=== PATIENT | female | born 1960 | race Caucasian/White ===

== ENCOUNTER → 2019-07-09 09:09 | Outpatient (BNVA) | payer MEDICAID, SELFPAY | PROVIDERS: Visit Provider Registered Nurse | DX: I10 Essential (primary) hypertension (principal); E55.9 Vitamin D deficiency, unspecified; J44.9 Chronic obstructive pulmonary disease, unspecified; Z72.0 Tobacco use; Z71.6 Tobacco abuse counseling; R09.02 Hypoxemia | CPT/HCPCS: 80053; 80061; 82306; 84443; 85025 ==

== ENCOUNTER → 2020-01-15 09:03 | Outpatient (BNVA) | payer MEDICAID, SELFPAY | PROVIDERS: Visit Provider Registered Nurse | DX: R35.0 Frequency of micturition (principal) | CPT/HCPCS: 81000 ==

== ENCOUNTER 2020-03-22 09:03 | Outpatient (CLI) | payer MEDICAID, SELFPAY ==
--- NOTE | 2020-03-22 09:11 | MM_ITS ---
WS: [id number] Bilateral screening digital mammogram, 03/22/2020 Clinical Data: SCREENING Comparison: 10/03/2017 Findings: The breast parenchymal pattern shows fibroglandular tissue. No spiculated masses or clustered calcifi cations are seen. There are no secondary signs of carcinoma. There is a calcification in the upper ou ter quadrant of the right breast which is probably a degenerating fibroadenoma. No change from the ea rlier exam is seen. MM/[place] [id number] Impression: 1. Negative bilateral mammogram unchanged. 2. Recommend annual screening mammograms. BIRADS: 2-Benign FOLLOW UP: 1 Year Follow-up The CAD inventory checker was used.
== END 2020-03-22 09:04 | disposition home or self-care (01) ==
LOC: RADSHAW 09:07
PROVIDERS: PCP Registered Nurse; Visit Provider Registered Nurse
DX: Z12.31 Encounter for screening mammogram for malignant neoplasm of breast (principal)
CPT/HCPCS: 77067

== ENCOUNTER → 2020-05-25 13:56 | Outpatient (BNVA) | payer MEDICAID, SELFPAY | PROVIDERS: PCP Registered Nurse; Visit Provider Registered Nurse | DX: N89.8 Other specified noninflammatory disorders of vagina (principal); B96.89 Other specified bacterial agents as the cause of diseases classified elsewhere | CPT/HCPCS: 80053; 81000; 82306; 82607; 85025 ==

== ENCOUNTER → 2021-03-07 15:00 | Outpatient (BNVA) | payer MEDICAID, SELFPAY | PROVIDERS: PCP Registered Nurse; Visit Provider Registered Nurse | DX: R10.11 Right upper quadrant pain (principal); E11.9 Type 2 diabetes mellitus without complications | CPT/HCPCS: 81000 ==

== ENCOUNTER → 2021-04-04 11:41 | Outpatient (BNVA) | payer MEDICAID, SELFPAY | PROVIDERS: PCP Registered Nurse; Visit Provider Registered Nurse | DX: E53.8 Deficiency of other specified B group vitamins (principal); B37.9 Candidiasis, unspecified | CPT/HCPCS: 87070 ==

== ENCOUNTER → 2021-12-22 14:59 | Outpatient (BNVA) | payer MEDICAID, SELFPAY | PROVIDERS: PCP Registered Nurse; Visit Provider Registered Nurse | DX: R05.9 Cough, unspecified (principal); J44.9 Chronic obstructive pulmonary disease, unspecified; Z20.822 Contact with and (suspected) exposure to COVID-19 | CPT/HCPCS: 87426 ==

== ENCOUNTER → 2022-02-09 11:25 | Outpatient (BNVA) | payer MEDICAID, SELFPAY | PROVIDERS: PCP Registered Nurse; Visit Provider Registered Nurse | DX: J44.1 Chronic obstructive pulmonary disease with (acute) exacerbation (principal) | CPT/HCPCS: 80053; 85025 ==

== ENCOUNTER → 2022-08-21 11:08 | Outpatient (BNVA) | payer MEDICAID, SELFPAY | PROVIDERS: PCP Registered Nurse; Visit Provider Registered Nurse | DX: R82.90 Unspecified abnormal findings in urine (principal) | CPT/HCPCS: 81000; 87077; 87086; 87184 ==

== ENCOUNTER → 2022-08-31 10:54 | Outpatient (BNVA) | payer MEDICAID, SELFPAY | PROVIDERS: PCP Registered Nurse; Visit Provider Registered Nurse | DX: J44.1 Chronic obstructive pulmonary disease with (acute) exacerbation (principal) | CPT/HCPCS: 83880; 85025; 86140 ==

== ENCOUNTER 2022-09-15 08:13 | Outpatient (CLI) | payer MEDICAID, SELFPAY ==
--- NOTE | 2022-09-15 08:30 | CT_ITS ---
WS: [id number] CT scan of the chest without IV contrast, additional two-dimensional coronal and sagittal reconstruct ion was performed. 09/15/2022 Clinical Data: J96.11 - Chronic respiratory failure with hypoxia Comparison: None. DLP: 182.[address] scans at [facility] use at least one of these dose optimization techniques: automated e xposure control; mA and/or kV adjustment per patient size (includes targeted exams where dose is matc hed to clinical indication); or iterative reconstruction. Findings: No nodules, masses or effusions are seen. The heart size is normal with no pericardial effusion. Ther e are coronary artery calcifications. The pulmonary arterial system and thoracic aorta demonstrate no abnormalities or dilatations. There is no axillary or significant mediastinal adenopathy. The upper abdomen demonstrates no abnormalities. The visualized liver, spleen, pancreas, and adrenal glands are unremarkable. There is a low-density area in the posterior aspect of the right kidney whic h is possibly a cyst. CT/CT chest wo con [id number] Impression: Negative for acute cardiopulmonary abnormalities.
== END 2022-09-15 08:14 | disposition home or self-care (01) ==
PROVIDERS: PCP Registered Nurse; Visit Provider Registered Nurse
DX: J44.9 Chronic obstructive pulmonary disease, unspecified (principal); J96.11 Chronic respiratory failure with hypoxia
CPT/HCPCS: 71250

== ENCOUNTER 2023-03-14 12:48 | Outpatient (CLI) | payer MEDICAID, SELFPAY ==
--- NOTE | 2023-03-14 13:00 | CT_ITS ---
WS: [id number] LDCT LUNG CANCER SCREENING TECHNIQUE: Noncontrast CT of the chest with coronal and sagittal reformatted images. CLINICAL INFORMATION: Z53.20 - Procedure and treatment not carried out because ... COMPARISON: CT chest 09/15/2022 DLP: 49.89 mGy.cm DIvol: Mean CTDIvol: 0.90 (mGy) All CT scans at [facility] use at least one of these dose optimization techniques: automat ed exposure control; mA and/or kV adjustment per patient size (includes targeted exams where dose is matched to clinical indication); or iterative reconstruction. FINDINGS: Moderate chronic emphysematous changes. Noncalcified nodule RIGHT upper lobe measuring 3 mm . Noncalcified 4 mm nodule RIGHT middle lobe anteriorly. Small RIGHT middle lobe nodule along the fissure. Noncalcified nodule in the RIGHT hilum measuring 5 mm. Nodular opacity RIGHT upper lobe near the lung apex measuring 6 mm. Noncalcified LEFT lower lobe nodule laterally measuring 5 mm. Noncalcified opacity LEFT lower lobe posteromedially measuring 6 mm. Normal caliber thoracic aorta. Aortic calcification. Coronary calcification. No mediastinal or hilar lymphadenopathy. No axillary lymphadenopathy. Normal GE junction. Mild thoracic curve. Mild thoracic kyphosis. Disc space narrowing midthoracic spi ne. Prominent disc osteophyte protrusion with moderate central canal stenosis at T6-T7 unchanged. IMPRESSION: CT/CT lung screening [id number] LUNG-RADS: 2-Benign Appearance or Behavior FOLLOW UP: 12 Month: Continue annual screening with LDCT
== END 2023-03-14 12:49 | disposition home or self-care (01) ==
LOC: RAD 12:48
PROVIDERS: PCP Registered Nurse; Visit Provider Registered Nurse
DX: Z53.20 Procedure and treatment not carried out because of patient's decision for unspecified reasons (principal); Z12.2 Encounter for screening for malignant neoplasm of respiratory organs; J44.9 Chronic obstructive pulmonary disease, unspecified; K21.9 Gastro-esophageal reflux disease without esophagitis; Z72.0 Tobacco use; Z12.11 Encounter for screening for malignant neoplasm of colon
CPT/HCPCS: 71271; 99203

== ENCOUNTER 2023-03-27 10:48 | Outpatient (CLI) | payer MEDICAID, SELFPAY ==
--- NOTE | 2023-03-27 10:59 | MM_ITS ---
WS: [id number] BILATERAL 3D TOMOSYNTHESIS DIGITAL SCREENING MAMMOGRAPHY WITH CAD CLINICAL INFORMATION: Z12.39 - Encounter for other screening for malignant neop... HISTORY: Screening mammogram. No current complaints. COMPARISON: 2020 TECHNIQUE: Bilateral CC and MLO views. FINDINGS: Scattered fibroglandular densities bilaterally. No suspicious focal mass, asymmetry, calcifications, or architectural distortion. No evidence of malignancy. Vascular calcification. Incidental punctate a nd lucent centered calcifications. Stable dense parenchymal tissue upper outer RIGHT breast. IMPRESSION: MM/[place] [id number] BI-RADS: 2-Benign FOLLOW UP: 1 Year Follow-up Recommend return to annual screening mammography.
== END 2023-03-27 10:49 | disposition home or self-care (01) ==
PROVIDERS: PCP Registered Nurse; Visit Provider Registered Nurse
DX: Z12.31 Encounter for screening mammogram for malignant neoplasm of breast (principal)
CPT/HCPCS: 77063; 77067

== ENCOUNTER 2023-04-18 06:35 | Day surgery (SDC) | payer MEDICAID, SELFPAY ==
[2023-04-18 06:53] VITALS: BP 111/70; PULSE 103; RESP 18; TEMP 36.8; O2SAT 92; BMI 23.8
[2023-04-18] MEDS: sodium chloride 0.9% 1,000 ML 30 ML IV (07:00)
--- NOTE | 2023-04-18 07:03 | ANES.PREANE2 ---
Pre-Anesthetic Assessment Height/Weight: Height 1.57 m Weight 58.967 kg Temp Pulse Resp BP Pulse Ox O2 Del Method 98.2 F 103 H 18 111/70 92 Room Air 04/18/23 06:53 04/18/23 06:53 04/18/23 06:53 04/18/23 06:53 04/18/23 06:53 04/18/23 06:53 Preop Diagnosis: Screening Operation Date: 04/18/23 07:30 Proposed Procedures p Colonoscopy G0121,Z12.11(Not Applicable) - Gamal Ring DO Familial anesthetic complications: None Was Beta Calixto taken within 24 hours: N/A Was Clonidine taken within 24 hours: N/A Last intake: Intake Last Liquid Date 04/17/23 Last Liquid Time 23:30 Last Solid Date 04/16/23 Last Solid Time 21:00 Social Tobacco (Vapes and smokes) and No alcohol 1 pack(s) per day Exam alert, oriented x 3 and regular rate & rhythm Diminished BBS Airway Submandibular: within normal limits Cervical ROM: within normal limits Mallampati: Class II Dentition: false History/ROS No significant history except as noted and No significant complaints Pulmonary Chronic Obstructive Pulmonary Disease, Cough (Productive) and Exertional Dyspnea Chronic bronchitis Wear O2 at night, doesn't know how much CV/HEM None reported Urinary Tract Infection GI Gastroesophageal Reflux Disease Metabolic None reported Musc/skel None reported Neuropsych None reported Anesthetic Plan ASA status: 3 Anesthesia: Anesthesia Evaluation, General and MAC Risk of > 500 ml blood loss (7ml/kg in children): No Medications/Allergies Home Medications Medication Instructions Recorded Confirmed Last Taken Type albuterol sulfate 90 mcg/actuation 2 puff inhalation QID #1 ea 08/03/22 04/18/23 Unknown Rx aerosol inhaler (ProAir HFA) fluticasone fur. 200 mcg-umeclid 1 inh inhalation DAILY 30 days #1 08/03/22 04/16/23 04/18/23 Rx 62.5 mcg-vilant 25 mcg ea inhalat.powder pantoprazole 40 mg tablet,delayed See Rx Instructions .Route 08/03/22 04/16/23 04/18/23 Rx release .COMPLEX #90 tabs oxygen #1 ea 08/31/22 03/30/23 Unknown Rx montelukast 10 mg tablet See Rx Instructions .Route 01/23/23 04/16/23 04/16/23 Rx .COMPLEX 90 days #90 tabs albuterol sulfate 2.5 mg/3 mL 2.5 mg (3 mL) inhalation Q8H PRN 03/30/23 04/16/23 04/18/23 Rx (0.083 %) solution for nebulization bronchospasm 10 days #90 mL cetirizine 10 mg tablet 10 mg PO DAILY 04/18/23 04/18/23 04/18/23 History Allergies Allergy/AdvReac Type Severity Reaction Status Date / Time No Known Allergies Allergy Verified 03/30/23 10:39 Current Medications Generic Name Dose Route Start Last Admin Trade Name Freq PRN Reason Stop Dose Admin Sodium Chloride 1,000 mls @ 30 mls/hr 04/18/23 06:45 04/18/23 07:00 Sodium Chloride 0.9% IV 04/19/23 06:44 30 mls/hr .Q24H CROW Administration PFSH Anesthesia Medical History COPD (chronic obstructive pulmonary disease) Gastroesophageal reflux disease without esophagitis Muscle cramps Vitamin B deficiency Surgical History Hx of hysterectomy Social History Smoking and tobacco/nicotine status: current every day tobacco/nicotine user cigarettes Packs smoked per day: 1 Alcohol intake: never Substance/Drug Use: never Adopted: No Caregiver/support person: No Lives independently: No Household members: spouse Marital status: service: No Current occupational status: disabled Sexually active: Yes Do you think of yourself as: Straight/Heterosexual Current gender identity: Female Data Anesthesia Cardiac Studies: No Data to Display
--- NOTE | 2023-04-18 07:52 | PM.HP ---
Providers/Chief Complaint Primary Care Provider: CALLIE Fernandez Chief Complaint: Z12.11 History of Present Illness Alisson Jaime is a 62 year old female Review of Systems General: Reports: 10 or more systems reviewed and unremarkable except in HPI and below Medications/Allergies Home Medications Medication Instructions Recorded Confirmed Last Taken Type albuterol sulfate 90 mcg/actuation 2 puff inhalation QID #1 ea 08/03/22 04/18/23 Unknown Rx aerosol inhaler (ProAir HFA) fluticasone fur. 200 mcg-umeclid 1 inh inhalation DAILY 30 days #1 08/03/22 04/16/23 04/18/23 Rx 62.5 mcg-vilant 25 mcg ea inhalat.powder pantoprazole 40 mg tablet,delayed See Rx Instructions .Route 08/03/22 04/16/23 04/18/23 Rx release .COMPLEX #90 tabs oxygen #1 ea 08/31/22 03/30/23 Unknown Rx montelukast 10 mg tablet See Rx Instructions .Route 01/23/23 04/16/23 04/16/23 Rx .COMPLEX 90 days #90 tabs albuterol sulfate 2.5 mg/3 mL 2.5 mg (3 mL) inhalation Q8H PRN 03/30/23 04/16/23 04/18/23 Rx (0.083 %) solution for nebulization bronchospasm 10 days #90 mL cetirizine 10 mg tablet 10 mg PO DAILY 04/18/23 04/18/23 04/18/23 History Allergies Allergy/AdvReac Type Severity Reaction Status Date / Time No Known Allergies Allergy Verified 03/30/23 10:39 PFSH Acute PFSH: Medical History COPD (chronic obstructive pulmonary disease) Gastroesophageal reflux disease without esophagitis Muscle cramps Vitamin B deficiency Surgical History Hx of hysterectomy Social History Smoking and tobacco/nicotine status: current every day tobacco/nicotine user cigarettes Packs smoked per day: 1 Alcohol intake: never Substance/Drug Use: never Adopted: No Caregiver/support person: No Lives independently: No Household members: spouse Marital status: service: No Current occupational status: disabled Sexually active: Yes Do you think of yourself as: Straight/Heterosexual Current gender identity: Female Vitals/I&O/Wt Last Vital Signs Temp 98.2 F 04/18/23 06:53 Pulse 103 H 04/18/23 06:53 Resp 18 04/18/23 06:53 BP 111/70 04/18/23 06:53 Pulse Ox 92 04/18/23 06:53 O2 Del Method Room Air 04/18/23 06:53 Weight last 48 hrs Weight 130 lb A&P Assessment and plan (1) Colon cancer screening: Plan Colonoscopy Attestations Medical Necessity Statement*: Home Coding Level of Care Code Acute Code for Chg Fwd Diagnoses Colon cancer screening Z12.11
[2023-04-18 08:35] VITALS: BP 94/63; PULSE 89; RESP 18; TEMP 36.1; O2SAT 99
[2023-04-18 08:40] VITALS: BP 98/52; PULSE 90; RESP 18; O2SAT 97
[2023-04-18 08:51] VITALS: BP 109/54; PULSE 83; RESP 18; O2SAT 98
--- NOTE | 2023-04-18 15:53 | ANE.PACU2 ---
Inpatient post-anesthesia follow up: Airway intact: Yes Vital signs: Temperature 97.0 F Pulse Rate 83 Respiratory Rate 18 Blood Pressure 109/54 Pulse Oximetry 98 Oxygen Delivery Me thod Room Air Oxygen Flow Rate Fraction of Inspir ed Oxygen Hydration adequate: Yes Nausea and vomiting: No Pain level: 2 Mental status: Baseline
== END 2023-04-18 09:14 | disposition home or self-care (01) ==
PROVIDERS: PCP Registered Nurse; Visit Provider Surgery
PROC: 0DJD8ZZ Inspection of Lower Intestinal Tract, Via Natural or Artificial Opening Endoscopic (ICD-10-PCS; CPT 45378; principal; 2023-04-18 07:30)
DX: Z12.11 Encounter for screening for malignant neoplasm of colon (principal); D12.5 Benign neoplasm of sigmoid colon; D12.3 Benign neoplasm of transverse colon; K57.30 Diverticulosis of large intestine without perforation or abscess without bleeding; J44.9 Chronic obstructive pulmonary disease, unspecified; K21.00 Gastro-esophageal reflux disease with esophagitis, without bleeding; F17.210 Nicotine dependence, cigarettes, uncomplicated; Z99.81 Dependence on supplemental oxygen
CPT/HCPCS: 45385; 88305; J2704; J7030

== ENCOUNTER → 2023-05-03 11:06 | Outpatient (BNVA) | payer MEDICAID, SELFPAY | PROVIDERS: PCP Registered Nurse; Visit Provider Registered Nurse | DX: N39.0 Urinary tract infection, site not specified (principal); G47.33 Obstructive sleep apnea (adult) (pediatric); J44.9 Chronic obstructive pulmonary disease, unspecified; J96.11 Chronic respiratory failure with hypoxia; Z71.6 Tobacco abuse counseling; F17.210 Nicotine dependence, cigarettes, uncomplicated; Z72.0 Tobacco use; N76.0 Acute vaginitis; B96.89 Other specified bacterial agents as the cause of diseases classified elsewhere | CPT/HCPCS: 81000; 87077; 87086; 87184 ==

== ENCOUNTER → 2023-05-22 10:41 | Outpatient (BNVA) | payer MEDICAID, SELFPAY | PROVIDERS: PCP Registered Nurse; Visit Provider Surgery | DX: Z09 Encounter for follow-up examination after completed treatment for conditions other than malignant neoplasm (principal) | CPT/HCPCS: 99213 ==

== ENCOUNTER → 2023-05-29 13:10 | Outpatient (BNVA) | payer MEDICAID, SELFPAY | PROVIDERS: PCP Registered Nurse; Visit Provider Registered Nurse | DX: N39.0 Urinary tract infection, site not specified (principal); J44.9 Chronic obstructive pulmonary disease, unspecified; F41.0 Panic disorder [episodic paroxysmal anxiety] | CPT/HCPCS: 81000; 87077; 87086; 87184 ==

== ENCOUNTER → 2023-06-29 10:38 | Outpatient (BNVA) | payer MEDICAID, SELFPAY | PROVIDERS: PCP Registered Nurse; Visit Provider Registered Nurse | DX: N39.0 Urinary tract infection, site not specified (principal) | CPT/HCPCS: 81000; 87077; 87086; 87184 ==

== ENCOUNTER → 2023-07-09 10:05 | Outpatient (BNVA) | payer MEDICAID, SELFPAY | PROVIDERS: PCP Registered Nurse; Visit Provider Registered Nurse | DX: N39.0 Urinary tract infection, site not specified (principal) | CPT/HCPCS: 81000; 87077; 87086; 87184 ==

== ENCOUNTER → 2023-07-13 10:22 | Outpatient (BNVA) | payer MEDICAID, SELFPAY | PROVIDERS: PCP Registered Nurse; Visit Provider Registered Nurse | DX: N39.0 Urinary tract infection, site not specified (principal) | CPT/HCPCS: 87086 ==

== ENCOUNTER → 2023-08-02 14:00 | Outpatient (BNVA) | payer MEDICAID, SELFPAY | PROVIDERS: PCP Registered Nurse; Referring Provider Registered Nurse; Visit Provider Internal Medicine Pulmonary Disease | DX: J44.9 Chronic obstructive pulmonary disease, unspecified (principal); R53.83 Other fatigue; Z71.6 Tobacco abuse counseling; J96.11 Chronic respiratory failure with hypoxia; R91.1 Solitary pulmonary nodule; R07.9 Chest pain, unspecified; F17.210 Nicotine dependence, cigarettes, uncomplicated | CPT/HCPCS: 99204 ==

== ENCOUNTER 2023-08-10 09:34 | Outpatient (CLI) | payer MEDICAID, SELFPAY ==
[2023-08-10 09:36] VITALS: BMI 24.7
--- NOTE | 2023-08-10 10:32 | ECG_ITS ---
[facility] Test Date: 2023-08-10 Pat Name: Alisson Jaime Department: Room: Gender: Female Barrel Marker: Purvi JulioDrea : 1960 Requested By: Lucas Lund Order Number: [id number] Tico MD: Abdias Styles M.D. Interpretive Statements NAME OF STUDY: LEXISCAN SESTAMIBI STRESS TEST INDICATION: [SOB and CP on exertion] Procedure: At the baseline, the blood pressure was 122/65 mmHg with a heart rate of 80 bpm. The electrocardiogram showed normal sinus rhythm, normal axis with normal ST and T's. The Lexiscan was infused over a period of 20 seconds. A total of 0.4 mg of Lexiscan was infused. The stress phase was continued for a total of 5 minutes. Heart rate was at the end of stress phase was 106 bpm and a blood pressure of 120/72 mmHg. The EKG at the peak infusion revealed normal sinus rhythm with no significant ST-T wave changes. Sestamibi was injected 20 seconds after the Lexiscan infusion. Blood pressure at the end of recovery phase was 123/74 mmHg with a heart rate of 95 bpm. Conclusion: 1. Normal EKG response to Lexiscan infusion 2. No Lexiscan induced chest pain or cardiac arrhythmia. 3. Normal blood pressure and heart rate response. 4. Sestamibi/sestamibi perfusion scan pending; see separate report. Electronically Signed On 08-30-2023 6:39:06 CDT by Abdias Styles M.D. [email or web address]
--- NOTE | 2023-08-10 10:33 | NMCV_ITS ---
NM antelmo perf SPECT r/s* [id number] Alisson Jaime Age: 63 Gender: F : 1960 Exam Date: 08/10/2023 10:51 Ordering Phys: Lucas Alarcon MD Technologist: SERGO Jara Exam Location: [facility] Indications: CHEST PAIN STRESS TEST [facility] IMAGE PROTOCOL Rest/Stress 1 Lexiscan Day Radiopharmaceutical Dose (mCi) Administration Site Administered by Rest: Tc-99m 10.2 IV SERGO Albrecht Sestamibi Stress:Tc-99m 32.2 IV SERGO Albrecht Sestamibi Rest: 10-Aug-2023 60 Discovery 630 Stress: 10-Aug-2023 30 Discovery 630 0.4mg Lexiscan. Images obtained in supine and prone position. SPECT RESULTS Technical Quality: Excellent Raw Data Analysis: Normal Image Corrections: No attenuation or motion correction applied Summed Stress Score: 0 Summed Rest Score: 0 Summed Difference Score: 0 PERFUSION FINDINGS SPECT images demonstrate homogeneous tracer distribution throughout the myocardium. FUNCTIONAL RESULTS (calculated via Gated SPECT) Stress Image LV EF (%): 84 Stress EDV (mL):69 TID: 1 Stress ESV (mL):11 FUNCTIONAL FINDINGS: There is normal left ventricular systolic function. IMPRESSIONS 1. Normal myocardial perfusion imaging with no evidence of ischemia. 2. LV systolic function is normal. Abdias Styles MD (Electronically Signed) Final Date: 10 August 2023 13:09 S
[2023-08-10] MEDS: regadenoson 0.4 Mg/5 ml Syringe 0.400000000000000022 MG IVP (11:28)
[2023-08-10] MEDS: aminophylline 25 mg/mL SDV 10 mL IVP (11:36)
[2023-08-10 11:41] VITALS: BP 123/74; PULSE 95
== END 2023-08-10 09:35 | disposition home or self-care (01) ==
LOC: CDL 09:35
PROVIDERS: PCP Registered Nurse; Visit Provider Internal Medicine Pulmonary Disease
DX: R07.9 Chest pain, unspecified (principal)
CPT/HCPCS: 36415; 78452; 93017; 96374; 96375; A9500; J0280; J2785

== ENCOUNTER 2023-08-22 10:03 | Outpatient (CLI) | payer MEDICAID, SELFPAY ==
[2023-08-22 10:24] VITALS: PULSE 105; RESP 18; O2SAT 97
[2023-08-22] MEDS: albuterol 2.5 mg/3 mL Neb INHALATION (10:24)
[2023-08-22 10:28] VITALS: PULSE 99
== END 2023-08-22 10:04 | disposition home or self-care (01) ==
PROVIDERS: PCP Registered Nurse; Visit Provider Internal Medicine Pulmonary Disease
DX: J44.9 Chronic obstructive pulmonary disease, unspecified (principal)
CPT/HCPCS: 94060; 94618; 94726; 94729; J7613

== ENCOUNTER 2023-08-27 11:00 | Outpatient (CLI) | payer MEDICAID, SELFPAY | END 2023-08-27 11:01 | disposition home or self-care (01) | LOC: SLEEP 08-29 08:36 | PROVIDERS: PCP Registered Nurse; Visit Provider Internal Medicine Pulmonary Disease | DX: R53.83 Other fatigue (principal) | CPT/HCPCS: 94762 ==

== ENCOUNTER → 2023-09-18 13:45 | Outpatient (BNVA) | payer MEDICAID, SELFPAY | PROVIDERS: PCP Registered Nurse; Visit Provider Internal Medicine Pulmonary Disease | DX: J44.9 Chronic obstructive pulmonary disease, unspecified (principal); Z71.6 Tobacco abuse counseling; J96.11 Chronic respiratory failure with hypoxia; R91.1 Solitary pulmonary nodule; F17.210 Nicotine dependence, cigarettes, uncomplicated | CPT/HCPCS: 99214 ==

== ENCOUNTER → 2023-10-17 13:29 | Outpatient (BNVA) | payer MEDICAID, SELFPAY | PROVIDERS: PCP Registered Nurse; Visit Provider Registered Nurse | DX: N39.0 Urinary tract infection, site not specified (principal) | CPT/HCPCS: 81000; 87086 ==